=== PATIENT | male | born 1990 | race Caucasian/White ===

== ENCOUNTER 2018-03-26 23:04 | Emergency (ER) | payer SELFPAY ==
[~2018-03-26] VITALS: Ht 180.3 cm; Wt 101.3 kg
[~2018-03-26 23:04] MED LIST: PERCOCET PO
[2018-03-26 23:08] VITALS: Ht 180.3 cm; Wt 101.3 kg
[2018-03-27] MEDS ORDERED: ACETAMINOPHEN 325 MG TAB PO ONE (02:00)
[2018-03-27] MEDS ORDERED: ACET500C5 PO (03:52)
[2018-03-27 04:15] VITALS: BP 149/67; PULSE 72; RESP 18
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
== END 2018-03-27 04:15 | disposition home or self-care (01) ==
LOC: FTE 23:04
DX: S00.81XA Abrasion of other part of head, initial encounter (principal); R51 Headache; V49.40XA Driver injured in collision with unspecified motor vehicles in traffic accident, initial encounter
CPT/HCPCS: 70450; 72125; 72170; 73030